=== PATIENT | female | born 1945 | race Caucasian/White ===

== ENCOUNTER 2016-07-13 10:44 | Emergency (ER) | payer MEDICARE, OTHER ==
[~2016-07-13] VITALS: Ht 160 cm; Wt 82.1 kg
[~2016-07-13 10:44] MED LIST: ALBU8.5H2 IH; ATOR20TA PO; BENA20TA78 PO; CHOL10002 PO; LANS30CA10 PO; LEVO88TA2 PO; METF500T4 PO; METO50TA7 PO; PARO20TA51 PO
[2016-07-13 11:23] LABS: BASOPHILS # (AUTO) 0.2 /CMM (0.0-0.2); BASOPHILS % (AUTO) 2.9 % (0.0-2.0); DIFF TOTAL % 100 %; EOSINOPHILS # (AUTO) 0.1 /CMM (0.0-0.7); EOSINOPHILS % (AUTO) 1.3 % (0.0-6.0); HEMATOCRIT 38 % (33-45); HEMOGLOBIN 12.8 g/dL (11.5-14.8); LYMPHOCYTES # (AUTO) 1.7 /CMM (0.8-4.8); LYMPHOCYTES % (AUTO) 26.8 % (20.0-44.0); MEAN CORPUSCULAR HEMOGLOBIN 28 PG (26.0-33.0); MEAN CORPUSCULAR HGB CONC 33 g/dl (31.0-36.0); MEAN CORPUSCULAR VOLUME 85 fL (82-100); MONOCYTES # (AUTO) 0.5 /CMM (0.1-1.30); MONOCYTES % (AUTO) 7.5 % (2.0-12.0); NEUTROPHILS # (AUTO) 3.9 /CMM (1.8-8.9); NEUTROPHILS % (AUTO) 61.5 % (43.0-81.0); PLATELET COUNT (AUTO) 167 /CMM (150-450); RED BLOOD CELL COUNT(AUTO) 4.49 MIL/uL (4.0-5.2); WHITE BLOOD COUNT (AUTO) 6.4 K/uL (4.3-11.0)
[2016-07-13 11:25] LABS: KETONES,URINE Negative (NEGATIVE); LEUKOCYTE ESTERASE ,URINE Small (NEGATIVE)
[2016-07-13 11:29] LABS: ADD UA MICROSCOPIC YES
[2016-07-13 11:35] LABS: CALCIUM, SERUM 8.6 mg/dL (8.5-10.1); CREATININE 0.8 mg/dL (0.6-1.3)
[2016-07-13 11:41] LABS: ADD URINE CULTURE YES; RBC,URINE 0-2 /HPF (0-2)
[2016-07-13 11:41] LABS: ALBUMIN 3.9 g/dL (3.4-5.0); BILIRUBIN,DIRECT 0.1 mg/dL (0.0-0.2); BILIRUBIN,TOTAL 0.3 mg/dL (0.2-1.0); INDIRECT BILIRUBIN 0.2 mg/dL (0.0-1.1); TOTAL PROTEIN, SERUM 7.5 g/dL (6.4-8.2)
[2016-07-13] MEDS ORDERED: NITROFURANTOIN/NITROFURAN MAC 100 MG CAPSULE ONE (12:20)
[2016-07-13] MEDS ORDERED: NITROFURANTOIN/NITROFURAN MAC 100 MG CAPSULE PO ONE (12:30)
[2016-07-13 12:35] VITALS: BP 102/56
== END 2016-07-13 12:35 | disposition home or self-care (01) ==
LOC: ER 10:46
DX: N30.00 Acute cystitis without hematuria (principal); R10.9 Unspecified abdominal pain; I10 Essential (primary) hypertension; J45.909 Unspecified asthma, uncomplicated; I25.10 Atherosclerotic heart disease of native coronary artery without angina pectoris; E11.9 Type 2 diabetes mellitus without complications; E78.5 Hyperlipidemia, unspecified; Z88.0 Allergy status to penicillin; Z88.1 Allergy status to other antibiotic agents
CPT/HCPCS: 36415; 74176; 80048; 80076; 81001; 83690; 85025; 87086; 99285; A4606; 81000-TC; Z7610

== ENCOUNTER → 2019-07-14 | Day surgery (SDC) | payer MEDICARE, OTHER ==
[~2019-07-14] VITALS: Ht 157.5 cm; Wt 81.6 kg
[~2019-07-14] MED LIST changes: -ALBU8.5H2 IH; +ALBU8.5H8 IH; +IOHEXOL-350 100 ML VIAL IV ONE; +IV NS 0.9% 250 ML IV ONE; +IV NS 0.9% 500 ML IV ONE; +IV SET PRIMARY 1 EA INFUS.SET MC ONE; -LANS30CA10 PO; +LANS30CA54 PO; +METF-440 PO; -METF500T4 PO; +METOPROLOL TARTRATE INJ 5 MG/5 ML AMPUL ONE; +NITROGLYCERIN 0.4 MG/TAB BOTTLE ONE; +NITROGLYCERIN 0.4 MG/TAB BOTTLE SL ONE; +PARO-64 PO; -PARO20TA51 PO
[2019-07-14 11:03] LABS: CALCIUM, SERUM 8.8 mg/dL (8.5-10.1); CREATININE 0.8 mg/dL (0.6-1.3); POTASSIUM 3.7 mmol/L (3.5-5.1)
[2019-07-14] MEDS: METOPROLOL TARTRATE INJ 5 MG/5 ML AMPUL IVP PRN ×3 (11:14→11:24)
[2019-07-14 11:24] VITALS: BP 118/65
--- NOTE | 2019-07-14 11:53 | NUR ---
CTA done, transferred pt to [facility] for quick recovery, but patient refused since the access transport is waiting for her. According to her, she will pay extra for being late and she rather go home now than wait longer. VS stable: BP = 132/61, HR = 69. No complaint of dizziness, SOB, no chest pain. heplock removed. took her to the access car to go home.
== END | disposition home or self-care (01) ==
LOC: CT 10:25
PROVIDERS: ATTEND Internal Medicine Interventional Cardiology
DX: I25.10 Atherosclerotic heart disease of native coronary artery without angina pectoris (principal); M47.814 Spondylosis without myelopathy or radiculopathy, thoracic region
CPT/HCPCS: 36415; 75574; 80048; J3490 ×3; J7040; J7050; Q9967

== ENCOUNTER 2019-07-28 08:13 | Outpatient (CLI) | payer MEDICARE, OTHER ==
[~2019-07-28 08:13] MED LIST changes: -IOHEXOL-350 100 ML VIAL IV ONE; -IV NS 0.9% 250 ML IV ONE; -IV NS 0.9% 500 ML IV ONE; -IV SET PRIMARY 1 EA INFUS.SET MC ONE; -METOPROLOL TARTRATE INJ 5 MG/5 ML AMPUL ONE; -NITROGLYCERIN 0.4 MG/TAB BOTTLE ONE; -NITROGLYCERIN 0.4 MG/TAB BOTTLE SL ONE
[2019-07-28] MEDS ORDERED: REGADENOSON 0.4 MG/5 ML DISP.SYRIN IVP ONE (09:00)
== END 2019-07-28 23:59 | disposition home or self-care (01) ==
LOC: NM 08:13
PROVIDERS: ATTEND Internal Medicine Interventional Cardiology
DX: R07.9 Chest pain, unspecified (principal)
CPT/HCPCS: 78452; A9502; J2785